=== PATIENT | male | born 1955 | race Caucasian/White ===

== ENCOUNTER 2022-11-12 06:55 | Inpatient (IN) ==
[2022-11-12] MEDS ORDERED: SODIUM CHLORIDE 0.9% 1000ML 1,000 ML IV ONE (07:18)
--- NOTE | 2022-11-12 07:22 | Emergency Department Note ---
Impression & Plan Acute kidney injury ED Provider Note Name: JENNIFER RUIZ Age: 66 Sex: M Arrives Via: Walk-In Informant: Patient, Family, Outpatient records ED Provider: Corey Kearney MD Chief Complaint: Abnormal laboratory testing Impression: As per impressions above Medical Decision Making: Pleasant 66-year-old male with a history of hypertension, dyslipidemia, CVA, GERD, depression who arrives for evaluation of abnormal laboratory testing. Patient lives in [place] during the winter and saw his PCP up here just this week. Yearly labs were obtained. He was called this morning by PCP and advised to come emergently to the ER for hospitalization due to abnormal laboratory te sting. On review of chart it appears that his creatinine is gone from 1-2. He does appear a bit dehydrated by examination so he is given 1 L normal saline. Laboratory testing confirms elevated creatinine here. I did discuss this with the hospitalist and given these findings I will bring him in for acute renal insufficiency. Patient calm comfortable in no distress. No overt symptoms of obstructive pathology will defer imaging to hospitalist Prior Medical Record and Triage/Nursing Notes reviewed by Me External chart reviewed by me including [facility] medical record from outpatient records. Differentials:Abnormal labs, renal failure, electrolyte imbalance, cardiac arr hythmia, UTI, obstruction, lab error amongst multiple other pathologies considered. Vital Signs: reviewed and remarkable for no significant abnormalities Interventions: 1 L normal saline IV Labs:Reviewed and remarkable for elevated creatinine EKG:As per my interpretation. Indication renal failure. Sinus bradycardia 55 bpm QTc of 373. There is no ectopy nor ischemia. When compared to an EKG of November 30, 2015 there is no significant change. Consults:[facility] Hospitalist Plan: Disposition:Hospitalization. Condition: Good History of Present Illness:66-year-old male arrives for evaluation of abnormal outpatient laboratory testing. Patient notes he has been feeling tired and fatigued for the last few months. About a month ago he started IM testosterone for low testosterone levels. Denies any chest pain, shortness of breath, syncope, palpitations, nausea, vomiting, back pain, appetite change, urinary burning or frequency, diarrhea, leg swelling, rashes or other concerning signs or symptoms. He has not had recent headaches neck pain. Does note that his urine is oftentimes dark. Patient does have a history of stroke but denies any worsening of his typical steadiness. No recent falls, trauma, injuries. No history of renal failure but states that his PCP told him this morning over the phone that his kidneys were failing based on laboratory test from yesterday. Patient denies any specific reason he be dehydrated no recent illnesses. Past History:Hypertension, dyslipidemia, CVA, GERD, depression. Patient admits daily 1 cigarette use. Occasional alcohol use. 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 Home Medications:Aspirin, clopidogrel, lisinopril, Valadol, modafinil, pantoprazole, sertraline, triamterene/hydrochlorothiazide Allergies:No known drug allergy Vitals:Blood Pressure: 112/71, Pulse 60, RR 20, T 36.2C, O2 96% on RA Physical Exam: GENERAL: Patient is tired/dehydrated appearing and in no distress. EYES: No scleral icterus, unremarkable pupils. ENT: Mucous membranes dry, no nasal congestion. RESPIRATORY: No dyspnea. Clear to auscultation and equal bilaterally. No wheeze, no rhonchi. CARDIOVASCULAR: Regular rate and rhythm.No murmurs, rubs, gallops appreciated. GASTROINTESTINAL: Abdomen soft, non-tender, no peritonitis. BACK: No midline tenderness, no CVA tenderness EXTREMITIES: Normal motion all extremities, no cyanosis, no edema. NEUROLOGIC: Alert and oriented, no gross focal neurologic deficit appreciated SKIN: No rash, no jaundice, no diaphoresis. PSYCH: Appropriate GCS: 15 ED Course: Times/Reassessments: Patient looks well on repeat evaluations breathing comfortably and on board with plan for hospitalization Corey Kearney MD Past Med/Surg History Medical History (Updated 11/13/22 @ 07:28 by Corey Kearney MD) Depression GERD (gastroesophageal reflux disease) History of stroke Hyperlipidemia Hypertension On anticoagulant therapy plavix daily for stroke Osteoarthritis Sleep apnea does not use CPAP as ordered Stroke (~07/07/17) unknown cause, on plavix Surgical History History of cataract surgery LEFT History of cholecystectomy History of colonoscopy History of esophagogastroduodenoscopy (EGD) History of loop recorder currently in placed--follows with Dr. Perry @ [facility] History of tonsillectomy Hx of laparoscopic gastric banding Family History Other Hypertension No family history of adverse response to anesthesia Social History Smoking Status: Current every day smoker Tobacco Type: Cigarettes Cigarettes Per Day: 1; Second Hand Exposure: Yes; Do You Dip or Chew Tobacco: Yes; Tobacco Cessation Education Requested by Patient: No Hx Alcohol Use: Yes Alcohol type: beer Hx Substance Use: Yes (Pt has history of alcohol abuse.) Last Used Substance: Days (ago) Last Used Substance Other:: / beer yesterday, 11/11/2022. Preferred Language: Swazi Communication Ability: Effective Roller Inspector Required: No Beliefs That Will Affect Care: None Current Living Situation: Spouse and Family Current Living Situation Comment: Living with at daughter's house during the summer, [place] in winter. Other Information That Helps Us Care for You: No Feels Safe at Home: Yes Safety Concerns: Feels Safe At This Time Assistive Devices: Glasses Allergies Allergies Allergy/AdvReac Type Severity Reaction Status Date / Time No Known Allergies Allergy Verified 08/18/20 06:39 Home Meds Home Medications Medication Instructions Recorded Confirmed clopidogrel 75 mg tablet 75 mg PO QAM 07/29/20 11/12/22 lisinopril 20 mg tablet 20 mg PO QAM 07/29/20 11/12/22 pantoprazole 40 mg tablet,delayed 40 mg PO QAM 07/29/20 11/12/22 release sertraline 100 mg tablet 100 mg PO QAM 07/29/20 11/12/22 triamterene 37.5 1 tab PO QAM 07/29/20 11/12/22 mg-hydrochlorothiazide 25 mg tablet ezetimibe 10 mg tablet 10 mg PO DAILY 11/12/22 11/12/22 testosterone cypionate 200 mg/mL 200 mg IM USEASDIRECTD 11/12/22 11/12/22 intramuscular oil Results & Data (ED) Vital Signs Vital Signs - 24 hr 11/12/22 08:05 11/12/22 08:06 11/12/22 08:30 Pulse Rate 55 L 54 L Pulse Rate from SpO2 Sensor 54 L Respiratory Rate 16 Blood Pressure 104/61 Blood Pressure Mean 75 Pulse Oximetry 98 11/12/22 08:30 11/12/22 09:00 11/12/22 09:00 Pulse Rate 54 L 52 L Pulse Rate from SpO2 Sensor 54 L 52 L Respiratory Rate 21 18 Blood Pressure 108/67 Blood Pressure Mean 80 Pulse Oximetry 96 96 11/12/22 09:30 11/12/22 09:30 11/12/22 10:22 Pulse Rate 52 L 50 L Pulse Rate from SpO2 Sensor 52 L Respiratory Rate 13 21 Blood Pressure 107/69 93/61 L Blood Pressure Mean 81 71 Pulse Oximetry 97 95 11/12/22 10:26 11/12/22 10:26 11/12/22 10:30 Pulse Rate 52 L Pulse Rate from SpO2 Sensor 51 L Respiratory Rate 16 Blood Pressure 93/61 L 116/66 Blood Pressure Mean 71 82 Pulse Oximetry 98 11/12/22 10:30 Pulse Rate 51 L Pulse Rate from SpO2 Sensor 51 L Respiratory Rate 13 Blood Pressure Blood Pressure Mean Pulse Oximetry 97 Laboratory Data 11/13/22 05:26 11/13/22 05:26 Lab Results 11/12/22 11/12/22 11/12/22 Range/Units 07:45 07:45 07:45 WBC 5.66 (4.8-10.8) K/ul RBC 4.75 (4.70-6.10) M/uL Hgb 14.3 (14.0-18.0) g/dl Hct 42.7 (42.0-52.0) % MCV 89.9 (80.0-100.0) fL MCH 30.1 (25.0-34.0) pg MCHC 33.5 (32.0-36.0) g/dL RDW Std Deviation 44.7 (36.4-46.3) fL RDW Coeff of Jacqui 13.6 (11.5-14.5) % Plt Count 176 (130-400) K/uL MPV 10.0 (9.4-12.4) fL Immature Gran % (Auto) 0.2 % Neut % (Auto) 67.7 % Lymph % (Auto) 20.3 % [place] % (Auto) 9.5 % Eos % (Auto) 1.8 % Baso % (Auto) 0.5 % Neut # (Auto) 3.83 (1.40-6.50) K/uL Lymph # (Auto) 1.15 L (1.2-3.4) K/uL [place] # (Auto) 0.54 (0.11-0.59) K/uL Eos # (Auto) 0.10 (0-0.50) K/uL Baso # (Auto) 0.03 (0-0.2) K/uL Immature Gran # (Auto) 0.01 (0.01-0.20) K/uL Sodium 138 (136-145) mmol/L Potassium 4.6 (3.5-5.1) mmol/L Chloride 107 (98-107) mmol/L Carbon Dioxide 23 (21-32) mmol/L Anion Gap 8 (3-11) BUN 39 H (6-23) mg/dl Creatinine 1.95 H (0.6-1.4) mg/dl Est Cr Clr Drug Dosing 40.1 ml/min Est GFR ( Amer) 40.4 ml/min Est GFR (Non-Af Amer) 34.8 ml/min BUN/Creatinine Ratio 20.0 (10-20) Glucose 98 (70-99(Fasting)) mg/dl Calcium 9.2 (8.6-10.3) mg/dl Phosphorus 4.2 (2.5-4.9) mg/dl Magnesium 2.1 (1.7-2.4) mg/dl Total Bilirubin 0.4 (0.2-1.0) mg/dl Direct Bilirubin 0.1 (0-0.2) mg/dl AST 14 (13-39) U/L ALT 20 (7-52) U/L Alkaline Phosphatase 72 (34-104) U/L Total Creatine Kinase 49 (30-223) U/L Troponin I High Sens 5.1 (0-20) pg/ml Total Protein 6.3 (6.0-8.3) gm/dl Albumin 4.4 (3.4-5.0) gm/dl TSH 1.099 (0.300-4.500) uIu/ml Urine Color Urine Appearance (Clear) Urine pH (4.5-7.5) Ur Specific [place] (1.000-1.030) Urine Protein (Negative) Urine Glucose (UA) (Negative) Urine Ketones (Negative) Urine Blood (Negative) Urine Nitrite (Negative) Urine Bilirubin (Negative) Urine Urobilinogen (Negative) Ur Leukocyte Esterase (Negative) SARS-CoV-2, RNA, NAAT (NEGATIVE) 11/12/22 11/12/22 Range/Units 07:45 07:45 WBC (4.8-10.8) K/ul RBC (4.70-6.10) M/uL Hgb (14.0-18.0) g/dl Hct (42.0-52.0) % MCV (80.0-100.0) fL MCH (25.0-34.0) pg MCHC (32.0-36.0) g/dL RDW Std Deviation (36.4-46.3) fL RDW Coeff of Jacqui (11.5-14.5) % Plt Count (130-400) K/uL MPV (9.4-12.4) fL Immature Gran % (Auto) % Neut % (Auto) % Lymph % (Auto) % [place] % (Auto) % Eos % (Auto) % Baso % (Auto) % Neut # (Auto) (1.40-6.50) K/uL Lymph # (Auto) (1.2-3.4) K/uL [place] # (Auto) (0.11-0.59) K/uL Eos # (Auto) (0-0.50) K/uL Baso # (Auto) (0-0.2) K/uL Immature Gran # (Auto) (0.01-0.20) K/uL Sodium (136-145) mmol/L Potassium (3.5-5.1) mmol/L Chloride (98-107) mmol/L Carbon Dioxide (21-32) mmol/L Anion Gap (3-11) BUN (6-23) mg/dl Creatinine (0.6-1.4) mg/dl Est Cr Clr Drug Dosing ml/min Est GFR ( Amer) ml/min Est GFR (Non-Af Amer) ml/min BUN/Creatinine Ratio (10-20) Glucose (70-99(Fasting)) mg/dl Calcium (8.6-10.3) mg/dl Phosphorus (2.5-4.9) mg/dl Magnesium (1.7-2.4) mg/dl Total Bilirubin (0.2-1.0) mg/dl Direct Bilirubin (0-0.2) mg/dl AST (13-39) U/L ALT (7-52) U/L Alkaline Phosphatase (34-104) U/L Total Creatine Kinase (30-223) U/L Troponin I High Sens (0-20) pg/ml Total Protein (6.0-8.3) gm/dl Albumin (3.4-5.0) gm/dl TSH (0.300-4.500) uIu/ml Urine Color Yellow Urine Appearance Clear (Clear) Urine pH 5.5 (4.5-7.5) Ur Specific [place] 1.019 (1.000-1.030) Urine Protein Negative (Negative) Urine Glucose (UA) Negative (Negative) Urine Ketones Negative (Negative) Urine Blood Negative (Negative) Urine Nitrite Negative (Negative) Urine Bilirubin Negative (Negative) Urine Urobilinogen Negative (Negative) Ur Leukocyte Esterase Negative (Negative) SARS-CoV-2, RNA, NAAT NEGATIVE (NEGATIVE) Administered Medications Acetaminophen (Acetaminophen 325 Mg Tab) 650 mg PO Q4H PRN PRN Reason: pain/fever Stop: 12/12/22 13:08 Last Admin: 11/12/22 23:46 Dose: 650 mg Documented By: Admin: 11/12/22 13:55 Dose: 650 mg Documented By: DANITA Heparin Sodium (Porcine) (Heparin Sod 5,000 Unit/0.5 Ml Vial) 5,000 units SQ Q8 [facility] Stop: 12/12/22 13:59 Last Admin: 11/13/22 05:54 Dose: 5,000 units Documented By: Admin: 11/12/22 21:25 Dose: 5,000 units Documented By: Admin: 11/12/22 14:43 Dose: 5,000 units Documented By: DANITA Discontinued Medications Sodium Chloride (Nss 1000ml) 1,000 mls @ 999 mls/hr IV .Q1H1M ONE Stop: 11/12/22 08:18 Last Infusion: 11/12/22 09:34 Dose: 0 mls/hr Documented By: Admin: 11/12/22 08:10 Dose: 999 mls/hr Documented By: JOEL Sodium Chloride (Nss 1000ml) 1,000 mls @ 100 mls/hr IV .Q10H [facility] Stop: 11/12/22 23:08 Last Infusion: 11/12/22 23:41 Dose: 0 mls/hr Documented By: Admin: 11/12/22 13:46 Dose: 100 mls/hr Documented By: DANITA Discharge Plan Visit Data Chief Complaint: Abnormal Labs/Diagnostic Testing Stated Complaint: ABNORMAL LABS, REF BY DOC ED Provider: Corey Kearney Discharge Problem: Acute kidney injury Patient Disposition: Admitted As Inpatient Discharge Instructions Interventions: ED Discharge Assessment Last Done: 11/12/22 12:54
[2022-11-12 08:08] LABS: Basophils # (auto) 0.03 K/uL (0-0.2); Basophils % (auto) 0.5 %; Eosinophils % (auto) 1.8 %; Hematocrit (blood only) 42.7 % (42.0-52.0); Hemoglobin 14.3 g/dl (14.0-18.0); Immature Granulocytes # (auto) 0.01 K/uL (0.01-0.20); Immature Granulocytes % (auto) 0.2 %; Lymphocytes # (auto) 1.15 K/uL (1.2-3.4); Lymphocytes % (auto) 20.3 %; Mean Corpuscular Hemoglobin 30.1 pg (25.0-34.0); Mean Corpuscular Hgb Conc 33.5 g/dL (32.0-36.0); Mean Corpuscular Volume 89.9 fL (80.0-100.0); Monocytes # (auto) 0.54 K/uL (0.11-0.59); Monocytes % (auto) 9.5 %; Neutrophils # (auto) 3.83 K/uL (1.40-6.50); Neutrophils % (auto) 67.7 %; Platelet Count 176 K/uL (130-400); RDW Coefficient of Variation 13.6 % (11.5-14.5); RDW Standard Deviation 44.7 fL (36.4-46.3); Red Blood Count 4.75 M/uL (4.70-6.10); White Blood Count 5.66 K/ul (4.8-10.8)
[2022-11-12 08:23] LABS: Appearance Urine Clear (Clear); Bilirubin Urine Negative (Negative); Blood Urine Negative (Negative); Color Urine Yellow; Glucose Urine UA Negative (Negative); Ketones Urine Negative (Negative); Leukocyte Esterase Urine Negative (Negative); Nitrite Urine Negative (Negative); Protein Urine Negative (Negative); Specific Gravity Urine 1.019 (1.000-1.030); Urobilinogen Urine Negative (Negative); pH Urine 5.5 (4.5-7.5)
[2022-11-12 09:24] LABS: Albumin Level 4.4 gm/dl (3.4-5.0); Bilirubin Direct 0.1 mg/dl (0-0.2); Bilirubin,Total 0.4 mg/dl (0.2-1.0); Calcium 9.2 mg/dl (8.6-10.3); Creatinine Clr Calc Pharmacy 40.1 ml/min; Est GFR (African American) 40.4 ml/min; Est GFR (Non-African American) 34.8 ml/min; Magnesium 2.1 mg/dl (1.7-2.4); Phosphorus 4.2 mg/dl (2.5-4.9); Potassium 4.6 mmol/L (3.5-5.1); Total Protein 6.3 gm/dl (6.0-8.3); Troponin I High Sensitivity 5.1 pg/ml (0-20)
--- NOTE | 2022-11-12 10:20 | History & Physical Report ---
Date of Service November 12, 2022 Assessment & Plan (1) Acute kidney injury: (2) Hypertension: (3) Hyperlipidemia: (4) Depression: (5) History of stroke: Plan This is a 66yo M with a PMH of HTN, history of CVA, depression and other medical problems who presented to ED with acute kidney injury. Acute kidney injury Outpatient Cr elevated at 2 (previous Cr 1.2 in 2020) in setting of new testosterone supplementation, lisinopril, hctz Given 1L NSS in ED CT abd/pelvis wo contrast pending Holding lisinopril, hctz, testosterone Renal diet, repeat labs in AM, consider nephro consult if no improvement Diarrhea Loose stool x 2 months with intermittent fecal incontinence No additional GI symptoms Stool cx, c diff ordered, CT abd/pelvis as above Due for colonoscopy as OP HTN BP on softer side 93/60 since arrival, holding antihypertensives 2/2 TERI Monitor HLD Continue Zetia History of CVA Continue Plavix, Zetia Depression Continue Zoloft DVT Ppx: SQ heparin Code status: FULL PCP:Melany Dispo: Admitted to med/surg Patient seen in collaboration with Dr. Mosley. Please see addendum. I spent a total of 75 minutes coordinating, documenting, and providing care for this patient excluding time spent in the performance of separately billed services. History of Present Illness Chief Complaint: abnormal labs Primary Care Provider: Hugh Douglas, This is a 66yo M with a PMH of HTN, history of CVA, depression and other medical problems who presented to ED with abnormal outpatient labs. Had lab work done in outpatient setting after returning from [place] and was found to have Cr elevated at 2 (previous Cr 1.2). Started taken testosterone 4 weeks ago and has had 2 shots. Has had loose stool over the past few months with some fecal i ncontinence. Denies any abdominal pain but did have some pain in lower back this morning. endorses worsened confusion over the past few months as well and gave example of him getting lost driving home from airport and went the wrong direction into another state. No recent viral illnesses, fever, chills, headache, CP, SOB, N/V, or constipation. Has ongoing orthopedic aches and pains. No new leg swelling. Allergies Allergy/AdvReac Type Severity Reaction Status Date / Time No Known Allergies Allergy Verified 08/18/20 06:39 Home Medications Medication Instructions Recorded Confirmed Type clopidogrel 75 mg tablet 75 mg PO QAM 07/29/20 11/12/22 History lisinopril 20 mg tablet 20 mg PO QAM 07/29/20 11/12/22 History pantoprazole 40 mg tablet,delayed 40 mg PO QAM 07/29/20 11/12/22 History release sertraline 100 mg tablet 100 mg PO QAM 07/29/20 11/12/22 History triamterene 37.5 1 tab PO QAM 07/29/20 11/12/22 History mg-hydrochlorothiazide 25 mg tablet ezetimibe 10 mg tablet 10 mg PO DAILY 11/12/22 11/12/22 History testosterone cypionate 200 mg/mL 200 mg IM USEASDIRECTD 11/12/22 11/12/22 History intramuscular oil Past Med/Surg History Medical History (Updated 11/12/22 @ 10:49 by Nicole Sauceda PA-C) Depression GERD (gastroesophageal reflux disease) History of stroke Hyperlipidemia Hypertension On anticoagulant therapy plavix daily for stroke Osteoarthritis Sleep apnea does not use CPAP as ordered Stroke (~07/07/17) unknown cause, on plavix Surgical History History of cataract surgery LEFT History of cholecystectomy History of colonoscopy History of esophagogastroduodenoscopy (EGD) History of loop recorder currently in placed--follows with Dr. 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 Physical Exam Physical Exam: Please see Dr. Mosley's addendum for physical exam. Results & Data Results & Data Vital Signs (Past 12 Hours) Vital Signs Temp Pulse Resp BP Pulse Ox O2 Del Method 11/12/22 09:30 52 L 13 97 11/12/22 09:30 107/69 11/12/22 09:00 52 L 18 96 11/12/22 09:00 108/67 11/12/22 08:30 54 L 21 96 11/12/22 08:30 104/61 11/12/22 08:06 54 L 16 98 11/12/22 08:05 55 L 11/12/22 06:59 36.2 C L 60 20 112/71 96 Room Air Laboratory Results Short CBC 11/12/22 Range/Units 07:45 WBC 5.66 (4.8-10.8) K/ul Hgb 14.3 (14.0-18.0) g/dl Hct 42.7 (42.0-52.0) % Plt Count 176 (130-400) K/uL BMP 11/12/22 07:45 Sodium 138 Potassium 4.6 Chloride 107 Carbon Dioxide 23 BUN 39 H Creatinine 1.95 H Glucose 98 Calcium 9.2 Cardiac Enzymes 11/12/22 Range/Units 07:45 Total Creatine Kinase 49 (30-223) U/L Liver Function 11/12/22 Range/Units 07:45 Total Bilirubin 0.4 (0.2-1.0) mg/dl Direct Bilirubin 0.1 (0-0.2) mg/dl AST 14 (13-39) U/L ALT 20 (7-52) U/L Alkaline Phosphatase 72 (34-104) U/L Albumin 4.4 (3.4-5.0) gm/dl Urine 11/12/22 Range/Units 07:45 Urine Color Yellow Urine Appearance Clear (Clear) Urine pH 5.5 (4.5-7.5) Ur Specific [place] 1.019 (1.000-1.030) Urine Protein Negative (Negative) Urine Glucose (UA) Negative (Negative) Supervising Physician Co-Signing Physician Notes Pt is a 66 y/o M with hx of HTN, STEVEN, HLD, EVELYN, Bariatric surgery- Band(2008), CVA (2017), low testosterone level, chronic neck pain, DDD, anger outburst, recent intake of testosterone injection was sent from outpt doc for acute decline in GFR (Cr 1.1 > 2). PE: NAD, well developed Lungs: CTA, no wheezing or crackles Cardiac: Normal S1/S2, no murmur Abd: No CVA tenderness, ND, NT, soft MSK: No LE edema Psych: AAOx3, normal affect A/P: Severe TERI: -could be 2/2 dehydration -will get CT abd to r/o any kidney or system pathology -received IVF ---- will trend BMP -pt has been having loose BM for 1 year ----- Colonoscopy 2017: sigmoid polyp otherwise unremarkable ----- will get stool test -pts BP is low normal in the ER ----- will hold Lisinopril and HCTZ-Triamterene - hold testosterone Agree with A/P by Nicole Sauceda PA-C
--- NOTE | 2022-11-12 12:22 | CT Scan Report ---
ABDOMEN AND PELVIS CT WITHOUT CONTRAST CT DOSE: 782.33 mGy.cm HISTORY: TERI, diarrhea, lower back pain TECHNIQUE: Multiaxial CT images of the abdomen and pelvis were performed without contrast. A dose lo wering technique was utilized adhering to the principles of ALARA. COMPARISON STUDY: Abdomen and pelvis CT 11/30/2015. FINDINGS: Punctate calcified granuloma seen within the right lower lobe. The left lung base is clear. No pneumoperitoneum. No pneumatosis. No acute fractures identified. There is a small fat-containing right inguinal hernia. A laparoscopic gastric band is again noted. This is likely in good position. F ocal dilatation of the distal esophagus is likely due to the expected gastric band. This is also mild thickening of the distal esophagus. This is consistent with a nonspecific esophagitis. The gastric b and tubing appears intact. Cholecystectomy. The unenhanced liver, spleen, adrenal glands, and pancrea s unremarkable. Calcified plaque within the normal caliber abdominal aorta. No renal or ureteral ston es. No hydronephrosis. There are small bilateral peripelvic renal cysts noted. No retroperitoneal lym phadenopathy. No pelvic lymphadenopathy or pelvic free fluid. Mild bladder wall thickening. This may be due to chronic outlet obstruction from the mildly enlarged prostate gland or underdistention. Subo ptimal evaluation for bowel pathology due to the lack of intravenous and oral contrast. However, ther e is no definite bowel wall thickening or obstruction. Normal appendix. IMPRESSION: 1. No renal or ureteral stones. No hydronephrosis. 2. No definite bowel wall thickening or obstruction. 3. Normal appendix. 4. Status post laparoscopic gastric band procedure. The gastric band appears in good position. 5. Focal dilatation of the distal esophagus likely due to the gastric band. This is also mild thicken ing of the distal esophagus consistent with a nonspecific esophagitis. ACT 112: Negative or not required by law. Electronically signed by: Yobani Vergara M.D. 11/12/2022 12:20 PM
[2022-11-12] MEDS ORDERED: ONDANSETRON INJ 2 MG/ML 2 ML VIAL IV PRN (13:09)
[2022-11-12] MEDS ORDERED: POLYETHYLENE (MIRALAX) 17 GM PACK PO PRN (13:09)
[2022-11-12] MEDS ORDERED: SODIUM CHLORIDE 0.9% 1000ML 1,000 ML IV SCH (13:09)
--- NOTE | 2022-11-12 13:28 | Electrocardiogram Report ---
Test Reason : Blood Pressure : / mmHG Vent. Rate : 055 BPM Atrial Rate : 055 BPM P-R Int : 166 ms QRS Dur : 084 ms QT Int : 390 ms P-R-T Axes : 044 005 040 degrees QTc Int : 373 ms Sinus bradycardia Otherwise normal ECG When compared with ECG of 30-NOV-2015 08:34, No significant change was found Confirmed by Hugh Whitley ([id number]) on 11/12/2022 1:28:38 PM Referred By: Confirmed By:Hugh Whitley
[2022-11-12] MEDS: ACETAMINOPHEN 325 MG TAB PO PRN ×2 (13:55→23:46)
[2022-11-12] MEDS: HEPARIN SOD 5,000 UNIT/0.5 ML VIAL SQ SCH ×2 (14:43→21:25)
[2022-11-13] MEDS: HEPARIN SOD 5,000 UNIT/0.5 ML VIAL SQ SCH ×3 (05:54→22:13)
[2022-11-13 06:18] LABS: Hematocrit (blood only) 39.1 % (42.0-52.0); Hemoglobin 13.2 g/dl (14.0-18.0); Mean Corpuscular Hemoglobin 30.7 pg (25.0-34.0); Mean Corpuscular Hgb Conc 33.8 g/dL (32.0-36.0); Mean Corpuscular Volume 90.9 fL (80.0-100.0); Mean Platelet Volume 9.9 fL (9.4-12.4); Platelet Count 154 K/uL (130-400); RDW Coefficient of Variation 13.4 % (11.5-14.5); RDW Standard Deviation 44.7 fL (36.4-46.3); White Blood Count 3.69 K/ul (4.8-10.8)
[2022-11-13 06:40] LABS: BUN Creatinine Ratio 21.1 (10-20); Calcium 8.5 mg/dl (8.6-10.3); Est GFR (African American) 70.5 ml/min; Est GFR (Non-African American) 60.8 ml/min; Magnesium 1.9 mg/dl (1.7-2.4); Potassium 4.7 mmol/L (3.5-5.1)
[2022-11-13] MEDS ORDERED: NITROGLYCERIN 2% OINTMENT 30GM TUBE EXT SCH (08:15)
[2022-11-13] MEDS ORDERED: SODIUM CHLORIDE 0.9% 1000ML 1,000 ML IV SCH (08:15)
[2022-11-13] MEDS: PANTOprazole 40 MG TAB PO SCH (08:18)
[2022-11-13] MEDS: CLOPIDOGREL BISULFATE 75 MG TAB PO SCH (08:19)
[2022-11-13] MEDS: SERTRALINE HCL 100 MG TABLET PO SCH (08:19)
[2022-11-13] MEDS: EZETIMIBE 10 MG TABLET PO SCH (08:19)
[2022-11-13] MEDS: ACETAMINOPHEN 325 MG TAB PO PRN (08:20)
--- NOTE | 2022-11-13 15:57 | Hospitalist Progress Note ---
Date of Service November 13, 2022 Assessment & Plan (1) Acute kidney injury: (2) Hypertension: (3) Hyperlipidemia: (4) Depression: (5) History of stroke: Plan Per admitting service notes with addendum: This is a 66yo M with a PMH of HTN, history of CVA, depression and other medical problems who presented to ED with acute kidney injury. Acute kidney injury Outpatient Cr elevated at 2 (previous Cr 1.2 in 2020) in setting of new testosterone supplementation, lisinopril, hctz Given 1L NSS in ED CT abd/pelvis wo contrast pending Holding lisinopril, hctz, testosterone Renal diet, repeat labs in AM, consider nephro consult if no improvement 11/13 CT abdomen pelvis: Unrevealing Given IV NSS overnight Creatinine back to baseline today, 1.2 Hold lisinopril, HCTZ Encouraged to continue oral fluid intake Diarrhea Loose stool x 2 months with intermittent fecal incontinence No additional GI symptoms Stool cx, c diff ordered, CT abd/pelvis as above Due for colonoscopy as OP 11/13 Resolved HTN BP on softer side 93/60 since arrival, holding antihypertensives 2/2 TERI Monitor 11/13 BP 133/60 this afternoon Monitor off IV fluids HLD Continue Zetia History of CVA Continue Plavix, Zetia Depression Continue Zoloft DVT Ppx: SQ heparin Code status: FULL PCP:Melany Dispo: Anticipate discharge home tomorrow medically stable plan of care discussed with patient in detail and at length all questions answered he is understanding, agreeable, comfortable with the plan of care Admission and Anticipated Discharge Date Admission Date: November 12, 2022 Subjective Follow-up for acute renal failure, etc. Seen resting in bed, sitting up, watching TV, comfortable, not in distress, very pleasant States he feels fine, better overall Weakness resolved Ambulating in the hallways with no problems No problems with urination, abdominal pain, nausea vomiting, diarrhea No other new symptom Review of Systems Review of Systems: all noted and negative except for above Physical Exam Physical Exam: General- oriented x 3, not in distress, speaks in sentences with no effort or accessory muscle use Head- atraumatic Eyes- PERRL, EOMI, anicteric ENT- oropharynx clear Neck- supple, no JVD, no adenopathy, no thyromegaly; carotids +2/2, no bruits appreciated Lungs- clear to auscultation bilaterally, no rales/wheezes Heart- normal rate, regular rhythm; no murmur, no gallop, no rub appreciated Abdomen- normal bowel sounds, nondistended, soft, nontender, no masses or hepatosplenomegaly Extremities- no pretibial edema, no calf tenderness; peripheral pulses intact Neuro- alert, oriented x 3; CN 2-12 grossly intact; motor 5/5 bilaterally;sensation 100% on all extremities; no other gross focal neurologic deficits Skin- warm & dry Results & Data Results & Data Vital Signs (Past 12 Hours) Vital Signs Temp Pulse Resp BP Pulse Ox O2 Del Method 11/13/22 08:10 36.8 C 56 L 18 136/79 97 Room Air all noted and reviewed including below
[2022-11-14] MEDS: ACETAMINOPHEN 325 MG TAB PO PRN ×2 (00:09→08:05)
--- NOTE | 2022-11-14 02:14 | Communication Note ---
Date of Service: November 14, 2022 210 AM Made aware by RN of uncontrolled blood pressure. SBP 170s in AM Patient about BP as per RN. Lisinopril on hold since admission due to kidney dysfunction AP Hypertensive urgency Amlodipine for now while lisinopril on hold. Will relay to AM provider.
[2022-11-14] MEDS ORDERED: amLODIPine BESYLATE 5 MG TAB PO SCH (02:15)
[2022-11-14] MEDS: HEPARIN SOD 5,000 UNIT/0.5 ML VIAL SQ SCH (06:09)
[2022-11-14 06:49] LABS: Hematocrit (blood only) 38.6 % (42.0-52.0); Hemoglobin 13.2 g/dl (14.0-18.0); Mean Corpuscular Hemoglobin 30.3 pg (25.0-34.0); Mean Corpuscular Hgb Conc 34.2 g/dL (32.0-36.0); Mean Corpuscular Volume 88.7 fL (80.0-100.0); Mean Platelet Volume 9.8 fL (9.4-12.4); Platelet Count 176 K/uL (130-400); RDW Standard Deviation 42.7 fL (36.4-46.3); Red Blood Count 4.35 M/uL (4.70-6.10); White Blood Count 4.13 K/ul (4.8-10.8)
[2022-11-14 06:59] LABS: BUN Creatinine Ratio 21.4 (10-20); Calcium 8.7 mg/dl (8.6-10.3); Creatinine Clr Calc Pharmacy 80.3 ml/min; Est GFR (African American) 92.7 ml/min; Potassium 4.2 mmol/L (3.5-5.1)
[2022-11-14] MEDS: CLOPIDOGREL BISULFATE 75 MG TAB PO SCH (08:07)
[2022-11-14] MEDS: PANTOprazole 40 MG TAB PO SCH (08:07)
[2022-11-14] MEDS: SERTRALINE HCL 100 MG TABLET PO SCH (08:07)
[2022-11-14] MEDS: EZETIMIBE 10 MG TABLET PO SCH (08:07)
--- NOTE | 2022-11-14 10:34 | Discharge Summary ---
Discharge Summary Date of Service November 14, 2022 Notes For Next Care Provider Patient admitted for TERI, creatinine peaked 1.95. Patient's home medications of lisinopril and triamterene-hydrochlorothiazide were placed on hold. He was treated with IV fluid. Patient did complain of off-and-on diarrhea/loose stool for the past 2 months. Stool studies unable to be obtained while inpatient. Creatinine improved with IV fluid as did blood pressure. Blood pressure was on softer side when admitted. Creatinine on discharge was 0.9. Discontinuing triamterene/hydrochlorothiazide. Patient encouraged to monitor blood pressure twice daily and bring log with him to next PCP appointment to closely monitor blood pressure. Recommend BMP at next PCP appt. Medication Changes From Visit Stop triamterene hydrochlorothiazide. Admission HPI Per Admitting Provider This is a 66yo M with a PMH of HTN, history of CVA, depression and other medical problems who presented to ED with abnormal outpatient labs. Had lab work done in outpatient setting after returning from [place] and was found to have Cr elevated at 2 (previous Cr 1.2). Started taken testosterone 4 weeks ago and has had 2 shots. Has had loose stool over the past few months with some fecal incontinence. Denies any abdominal pain but did have some pain in lower back this morning. endorses worsened confusion over the past few months as well and gave example of him getting lost driving home from airport and went the wrong direction into another state. No recent viral illnesses, fever, chills, headache, CP, SOB, N/V, or constipation. Has ongoing orthopedic aches and pains. No new leg swelling. Principal Dx & Hospital Course #1 = Principal Diagnosis (1) Acute kidney injury: (2) Hypertension: (3) Hyperlipidemia: (4) Depression: (5) History of stroke: Plan This is a 66yo M with a PMH of HTN, history of CVA, depression and other medical problems who presented to ED with acute kidney injury. Patient had lab work done in outpatient setting after returning from [place] and was found to have creatinine elevated at 2, previous creatinine 1.2. Only medications patient started taking testosterone 4 weeks ago and is so far had 2 injections. He also reported loose stool over the past few months with occasional fecal incontinence. CT abdomen pelvis was performed which did show evidence of gastric band and possible evidence of esophagitis but otherwise no acute abnormality. Stool study was not able to be obtained as patient was unable to produce. He is due for a colonoscopy in the outpatient setting. Patient's triamterene-hydrochlorothiazide and lisinopril were placed on hold. His blood pressure was on the softer side on admission. He was treated with IV fluid. Patient was hospitalized for 2 midnights and renal function improved to 0.98 on day of discharge. His triamterene-hydrochlorothiazide is being discontinued and he will continue lisinopril 20 mg daily. He is encouraged to avoid nephrotoxic agents such as NSAIDs. On day of discharge he is in good spirits without acute complaint. His blood pressure had stabilized to 126/76. He currently denies any loose stool. He will follow-up with PCP in outpatient setting. It is recommended he have repeat BMP at hospital follow-up. Discharge Exam Gen: WD/WN, NAD, A&O x3 HEENT: Normocephalic, atraumatic, conjunctivae moist, sclerae anicteric, mucous membranes moist. Lung: Clear to Auscultation bilaterally, no wheezes/rales/rhonchi Heart: Regular rate, regular rhythm, no murmurs, rubs, or gallops Abdomen: Soft, NT, ND +BS x 4 Extremities: No edema Skin: Warm, no rash, negative turgor. Updated Medication List Medication Instructions Recorded Confirmed Type clopidogrel 75 mg tablet 75 mg PO QAM 07/29/20 11/12/22 History lisinopril 20 mg tablet 20 mg PO QAM 07/29/20 11/12/22 History pantoprazole 40 mg tablet,delayed 40 mg PO QAM 07/29/20 11/12/22 History release sertraline 100 mg tablet 100 mg PO QAM 07/29/20 11/12/22 History ezetimibe 10 mg tablet 10 mg PO DAILY 11/12/22 11/12/22 History testosterone cypionate 200 mg/mL 200 mg IM USEASDIRECTD 11/12/22 11/12/22 History intramuscular oil Hospital Stay Data Consultations 11/12/22 10:13 ED Decision to Admit Stat Diagnostic Imagining Performed Abdomen/Pelvis CT 11/12/22 10:[address] WITHOUT CONTRAST CT DOSE: 782.33 mGy.cm HISTORY: TERI, diarrhea, lower back pain TECHNIQUE: Multiaxial CT images of the abdomen and pelvis were performed without contrast. A dose lowering technique was utilized adhering to the principles of ALARA. COMPARISON STUDY: Abdomen and pelvis CT 11/30/2015. FINDINGS: Punctate calcified granuloma seen within the right lower lobe. The left lung base is clear. No pneumoperitoneum. No pneumatosis. No acute fractures identified. There is a small fat-containing right inguinal hernia. A laparoscopic gastric band is again noted. This is likely in good position. Focal dilatation of the distal esophagus is likely due to the expected gastric band. This is also mild thickening of the distal esophagus. This is consistent with a nonspecific esophagitis. The gastric band tubing appears intact. Cholecystectomy. The unenhanced liver, spleen, adrenal glands, and pancreas unremarkable. Calcified plaque within the normal caliber abdominal aorta. No renal or ureteral stones. No hydronephrosis. There are small bilateral peripelvic renal cysts noted. No retroperitoneal lymphadenopathy. No pelvic lymphadenopathy or pelvic free fluid. Mild bladder wall thickening. This may be due to chronic outlet obstruction from the mildly enlarged prostate gland or underdistention. Suboptimal evaluation for bowel pathology due to the lack of intravenous and oral contrast. However, there is no definite bowel wall thickening or obstruction. Normal appendix. IMPRESSION: 1. No renal or ureteral stones. No hydronephrosis. 2. No definite bowel wall thickening or obstruction. 3. Normal appendix. 4. Status post laparoscopic gastric band procedure. The gastric band appears in good position. 5. Focal dilatation of the distal esophagus likely due to the gastric band. This is also mild thickening of the distal esophagus consistent with a nonspecific esophagitis. ACT 112: Negative or not required by law. Electronically signed by: Yobani Vergara M.D. 11/12/2022 12:20 PM Pending Results Patient Have Any Pending Studies at Discharge: No Discharge Instructions Given to Patient (Per Discharging Provider) MEDICATION CHANGES: Stop triamterene hydrochlorothiazide. Continue all other medications as prescribed. SUMMARY OF TEST RESULTS: You were admitted to hospital secondary to elevated kidney function. This resolved with IV fluid and holding her blood pressure medications. It appears you were dehydrated. Your triamterene/hydrochlorothiazide has been discontinued. On discharge your creatinine was back to normal at 0.9. PENDING TEST RESULTS: None RECOMMENDATIONS FOR FOLLOW-UP: Drink 2 to 3 L of water daily. Recommend monitor blood pressure twice daily and keep a log of this. Take this with you to your next primary care provider appointment. One of your blood pressure medications has been discontinued (triamterene hydrochlorothiazide). You will remain on lisinopril 20 mg daily. Recommend repeat blood work to re evaluate your kidney function at follow up with Primary Care Provider. Continue all other medications as prescribed. Avoid anti inflammatory medications like ibuprofen, advil, aleve and motrin as these can all be harmful to the kidney. Recommend discussing with PCP to set you up as outpatient for colonoscopy. OTHER INSTRUCTIONS: Seek medical attention if you have: * temperature above 101 * chest pain or trouble breathing * abdominal pain, nausea, vomiting * diarrhea, dark stools or bloody stools * any unanswered questions or concerns Call 911 if symptoms are severe. Please take good care of yourself. It has been a pleasure taking care of you. Please take care of yourself. If you have any questions regarding your recent hospitalization please contact [facility] and request [facility] Hospitalist @ [phone]. Total Time Total Time Spent Total Time Spent (In Minutes): 45 minutes Supervising Physician Co-Signing Physician Notes Attending Addendum: care coordinated with ROCIO Ferris please refer to her notes for full details, I agree with her notes patient seen and examined, records reviewed by myself as well diagnoses and plan of care as per ROCIO Ferris's notes Dc Aguilar MD
== END 2022-11-14 10:59 | disposition home or self-care (01) | DRG 684 ==
LOC: ED 06:55 → 3E 10:40 → SUATTDRO 10:40 → 3E 12:54